=== PATIENT | female | born 1970 | race Hispanic/Latino ===

== ENCOUNTER 2024-08-29 13:12 | Inpatient (IN) | payer MEDICAID, OTHER ==
[~2024-08-29] VITALS: Ht 160 cm; Wt 124.0 kg
[2024-08-29 13:47] LABS: BASOPHILS # (AUTO) 0.04 K/uL (0.00-0.20); BASOPHILS % (AUTO) 0.4 % (0.0-5.0); HEMATOCRIT 48.2 % (36-48); IMMATURE GRANULOCYTE ABSOLUTE 0.04 K/uL (0-1); LYMPHOCYTES # (AUTO) 1.6 K/uL (1.0-4.8); LYMPHOCYTES % (AUTO) 17.6 % (21.0-51.0); MEAN CORPUSCULAR HEMOGLOBIN 31.4 pg (27.0-33.0); MEAN CORPUSCULAR HGB CONC 36.1 g/dL (32.0-36.0); MEAN CORPUSCULAR VOLUME 86.8 fL (79-99); MONOCYTES # (AUTO) 0.6 K/uL (0.1-1.0); NEUTROPHILS # (AUTO) 6.9 K/uL (1.8-7.7); NEUTROPHILS % (AUTO) 75.6 % (40.0-77.0); PLATELET COUNT (AUTO) 225 K/uL (130-400); RED BLOOD CELL COUNT(AUTO) 5.55 MIL/uL (4.00-5.50); WHITE BLOOD COUNT (AUTO) 9.1 K/uL (4.8-10.8)
--- NOTE | 2024-08-29 13:56 | EKG ---
[facility] Test Date: 2024-08-29 Test Time: 13:54:35 Pat Name: CONG WARREN Department: ED Room: Gender: F Extrusion Former: [id number] : 1970 Requested By: MIYA ALVAREZ Order Number: [id number] Reading MD: Veronica Ring Measurements Intervals Tina Rate: 101 P: 59 IL: 143 QRS: 15 QRSD: 100 T: 138 QT: 344 QTc: 447 Interpretive Statements Sinus tachycardia Inferior infarct, old Nonspecific T abnormalities, lateral leads No previous ECG available for comparison Electronically Signed On 08-29-2024 16:20:58 OPERATIONS MANAGER ASSISTANT by Veronica Ring Please click the below link to view image of tracing.
[2024-08-29 14:31] LABS: CREATININE 1.6 mg/dL (0.5-1.0); POTASSIUM 4.7 mmol/L (3.5-5.1)
[2024-08-29 14:33] LABS: B-TYPE NATRIURETIC PEPTIDE 7 pg/mL (0-100)
[2024-08-29] MEDS: 0.9%NACL 1000ML 1,000 ML IV ONE ×2 (15:04→16:53)
--- NOTE | 2024-08-29 16:11 | ERN ---
General Chief Complaint: Weakness Stated Complaint: GENERALIZED WEAKNESS Time Seen by MD: 13:16 History of Present Illness Initial Comments 54-year-old female presents for generally feeling weak for the last week or so. Patient took Ozempic for the 1st time last Saturday. Since then she has had epigastric pain a few episodes of vomiting, and decreased oral and p.o. intake. She reports that she feels very weak and fatigued. No chest pain shortness of breath or fevers. No sore throat. Of note, she reports that she stopped taking her insulin this week because she has not been eating and does not think she needs it. Allergies: Coded Allergies: Penicillins (Unverified Allergy, Unknown, RASH, 08/29/24) Home Meds Reported Medications Semaglutide (Ozempic) 2 Mg/0.75 Ml (8 Mg/3 Ml) Pen.injctr, 2 MG SQ QWEEK for 30 Days, #3 ML 0 Refills 08/29/24 Past Medical History Past Medical History: Diabetes-Type II, High Cholesterol, Hypertension Past Surgical History: Other Surgical History Other: LT OVARIAN SX ROS Dictation CONSTITUTIONAL: Generalized weakness HEAD/FACE: No signs of trauma. EENT: No eye pain, no blurred vision, no tearing, no double vision, no ear pain, no ear discharge, no nose pain, no nasal congestion, no throat pain, no throat swelling, no mouth pain. RESPIRATORY: No cough, no orthopnea, no SOB, no stridor, no wheezing. CARDIOVASCULAR: No chest pain, no edema, no palpitations, no syncope. GASTROINTESTINAL/ABDOMINAL: No abdominal pain, no constipation, no diarrhea, no nausea, no vomiting. GENITOURINARY: No abnormal discharge, no dysuria, no frequent urination, no hematuria. No complaints of pain in the genitals. MUSCULOSKELETAL: No back pain, no gout, no joint pain, no joint swelling, no muscle pain, no muscle stiffness, no neck pain. INTEGUMENTARY: No change in color, no change in hair/nails, no dryness, no lesion, no lumps, no rash. NEUROLOGICAL/PSYCH: No anxiety, not depressed, no emotional problem, no headache, no numbness, no pre-existing deficit, no history of seizures, no tr emors, no weakness. HEMATOLOGIC/LYMPHATIC: Not anemic, no history of blood clots, no apparent bleeding, no bruising, glands not swollen. All Systems Negative, Except as Noted. Physical Exam Physical Exam Dictation VITAL SIGNS: Reviewed. GENERAL APPEARANCE: Alert, oriented x3, no acute distress, obese. HEAD AND FACE: Non-traumatic. EYES: PERRL, pink conjunctivas, eyelid no trauma, anterior chamber clear. EARS: Pinnas intact and no signs of trauma or erythema. Ear canals clear and no discharge. TMs no erythema. NOSE: No discharge, no bleeding. OROPHARYNX: Mouth normal, teeth no caries, tongue pink. Pharynx clear, no erythema. Tonsils no exudates, no abscesses noted. Mucous membrane moist. NECK: Supple, non-tender, no thyromegaly, no masses, no JVD, no bruits. BREAST: Deferred. CHEST: No tenderness, no crepitus, no paradoxical movement, no retractions. LUNGS: Clear, well-ventilated, symmetric, no rales, no wheezing, no rhonchi, no stridor, good breath sounds bilaterally. HEART: Regular rate, regular rhythm, no murmur, no gallops. VASCULAR: No peripheral edema. ABDOMEN: Soft, positive bowel sounds, nondistended, no guarding, nontender, no rebound, no masses no hepatomegaly, no splenomegaly, no Bales's sign, no hernias. RECTAL: Deferred. GENITAL: Deferred. NEUROLOGICAL: Normal speech, gross motor function intact, gross sensory function intact. MUSCULOSKELETAL: Neck nontender, full range of motion, back nontender, full range of motion. EXTREMITIES: Nontender, full range of motion. SKIN: Color pink, dry, no turgor, no rash, no lacerations, no abrasions, no contusions. LYMPHATICS: Deferred. Results Laboratory and Microbiology Lab and Micro Result Laboratory Tests Test 08/29/24 13:41 08/29/24 14:09 08/29/24 16:00 08/29/24 16:38 White Blood Count 9.1 K/uL (4.8-10.8) Red Blood Count 5.55 MIL/uL (4.00-5.50) H Hemoglobin 17.4 g/dL (12.0-16.0) H Hematocrit 48.2 % (36-48) H Mean Corpuscular Volume 86.8 fL (79-99) Mean Corpuscular Hemoglobin 31.4 pg (27.0-33.0) Mean Corpuscular Hemoglobin Concent 36.1 g/dL (32.0-36.0) H Red Cell Distribution Width 12.0 % (11.0-15.5) Platelet Count 225 K/uL (130-400) Mean Platelet Volume 9.8 fL (7.5-10.5) Immature Granulocyte % (Auto) 0.4 % (0-1) Neutrophils (%) (Auto) 75.6 % (40.0-77.0) Lymphocytes (%) (Auto) 17.6 % (21.0-51.0) L Monocytes (%) (Auto) 6.0 % (3.0-13.0) Eosinophils (%) (Auto) 0.0 % (0.0-8.0) Basophils (%) (Auto) 0.4 % (0.0-5.0) Neutrophils # (Auto) 6.9 K/uL (1.8-7.7) Lymphocytes # (Auto) 1.6 K/uL (1.0-4.8) Monocytes # (Auto) 0.6 K/uL (0.1-1.0) Eosinophils # (Auto) 0.00 K/uL (0.00-0.70) Basophils # (Auto) 0.04 K/uL (0.00-0.20) Absolute Immature Granulocyte (auto 0.04 K/uL (0-1) Nucleated Red Blood Cells 0.0 % (0.0-0.19) Red Blood Cell Morphology See comments B-Type Natriuretic Peptide 7 pg/mL (0-100) Sodium Level 127 mmol/L (136-145) L Potassium Level 4.7 mmol/L (3.5-5.1) Chloride Level 93 mmol/L (101-111) L Carbon Dioxide Level 11 mmol/L (21-32) L Blood Urea Nitrogen 31 mg/dL (7-18) H Creatinine 1.6 mg/dL (0.5-1.0) H Glomerular Filtration Rate Calc 38 mL/min (>90) Random Glucose 446 mg/dL (70-105) *H Total Calcium 9.2 mg/dL (8.5-10.1) Total Creatine Kinase 27 U/L (21-232) Troponin I High Sensitivity 16.0 ng/L (4-50) Urine Color LIGHT-YELLOW (YELLOW) Urine Appearance CLEAR (CLEAR) Urine pH 5.5 (5.0-8.0) Urine Specific [place] 1.029 (1.001-1.031) Urine Protein 30 mg/dL (NEGATIVE) H Urine Glucose (UA) >=1000 mg/dL (NEGATIVE) H Urine Ketones 150 mg/dL (NEGATIVE) H Urine Occult Blood +- (TRACE) (NEGATIVE) H Urine Nitrate NEGATIVE (NEGATIVE) Urine Bilirubin NEGATIVE mg/dL (NEGATIVE) Urine Urobilinogen 0.2 mg/dL (0.2-1.0) Urine Leukocyte Esterase 75 Letty/uL (NEGATIVE) H Urine RBC 0-1 /HPF (0-1) Urine WBC 26-50 /HPF (0-1) H Urine Squamous Epithelial Cells RARE /HPF (0-2) Urine Bacteria RARE /HPF (None Seen) Urine Other Casts 3 /LPF (None Seen) Urine Yeast RARE /HPF (None Seen) Lactic Acid Level 2.7 mmol/L (0.8-2.5) H Test 08/29/24 16:39 08/29/24 16:44 08/29/24 17:25 08/29/24 17:57 Whole Blood Glucose 395 MG/DL (70-110) H 316 MG/DL (70-110) H Blood Gas Specimen Type Arterial Arterial Blood pH 7.222 (7.350-7.450) Arterial Blood Partial Pressure CO2 17 mmHg (32-45) *L Arterial Blood Partial Pressure O2 98.0 mmHg (83.0-108.0) Arterial Blood HCO3 6.7 mmol/L (21.0-28.0) L Arterial Blood Oxygen Saturation 96.4 % (94.0-98.0) Arterial Blood Base Excess -18.4 mmol/L (-2.0-3.0) L Blood Gas Temperature 37.0 CELSIUS (35.5-37.0) Blood Gas Vent Mode RA (ROOM AIR) FiO2 21.0 % Blood Gas Specimen Comment DR.WORTH JEWEL Sodium Level 130 mmol/L (136-145) L Potassium Level 4.5 mmol/L (3.5-5.1) Chloride Level 96 mmol/L (101-111) L Carbon Dioxide Level 13 mmol/L (21-32) L Blood Urea Nitrogen 28 mg/dL (7-18) H Creatinine 1.4 mg/dL (0.5-1.0) H Glomerular Filtration Rate Calc 44 mL/min (>90) Random Glucose 364 mg/dL (70-105) H Whole Blood Ketones Quantitative 6.3 mmol/L (0.0-0.6) H Total Calcium 9.1 mg/dL (8.5-10.1) MDM CC: Generalized weakness status post injecting Ozempic for the 1st time Historian: Patient Comorbidities: Obesity, diabetes, hypertension, dyslipidemia Limitations by social determinants of health: None Differential diagnosis: Medication side effect, dehydration, hyper or hypoglycemia, metabolic derangement, infection, other. EKG: NSR, rate of 101, tachycardic, normal axis, good R-wave progression, intervals are stable with no STEMI. Independently interpreted by me. Vital signs: Initially bit tachycardic heart rate of 106, this improved in the ER. Hypertensive 166/97, baseline for patient. Labs (independently interpreted by me): No leukocytosis, she does have hemoconcentration hemoglobin 17.4 hematocrit 48. No shift or bands. ABG shows a pH 7.22 base excess -18 consistent with metabolic acidosis patient was started on DKA protocol including fluids insulin drip and electrolytes. Case discussed with hospitalist for admission. ED Course Orders Procedure Category Date Status Time Cardiac Panel LAB 08/29/24 Complete 13:36 Cbc With Differential LAB 08/29/24 Complete 13:36 Basic Metabolic Panel LAB 08/29/24 Complete 13:36 B-Type Natriuretic LAB 08/29/24 Complete Peptide 13:36 Urinalysis Profile LAB 08/29/24 Complete 13:36 0.9%Nacl 1000ml (Ns PHA 08/29/24 Complete 1000ml) 14:00 12 Lead Ekg Tracing- EKG 08/29/24 Resulted Technical 13:36 Arterial Blood Gas RT 08/29/24 Transmitted 16:24 Ketone Blood LAB 08/29/24 Complete Quantitative 16:24 0.9%Nacl 1000ml (Ns PHA 08/29/24 Complete 1000ml) 16:30 Dka Prtcl:Restrict To CPOE 08/29/24 Transmitted Icu/Ccu 16:24 Dka Protcl:Dc All CPOE 08/29/24 Transmitted Meds/Feeding 16:24 Dka Protocol: Bmp Q4h CPOE 08/29/24 Transmitted Until 16:24 Basic Metabolic Panel LAB 08/29/24 Complete 16:24 Basic Metabolic Panel LAB 08/29/24 Logged 20:24 Basic Metabolic Panel LAB 08/30/24 Verified 00:24 Basic Metabolic Panel LAB 08/30/24 Verified 04:24 Basic Metabolic Panel LAB 08/30/24 Verified 08:24 Basic Metabolic Panel LAB 08/30/24 Verified 12:24 Basic Metabolic Panel LAB 08/30/24 Verified 16:24 Basic Metabolic Panel LAB 08/30/24 Verified 20:24 0.9%Nacl 1000ml (Ns PHA 08/29/24 In Process 1000ml) 16:30 D5w-1/2 Ns/20meq Kcl PHA 08/29/24 In Process (D5w-1/2 Ns/20meq K 16:30 Potassium Chloride PHA 08/29/24 In Process 20meq/10ml (Kcl 20meq 16:30 Magnesium 2gm Premix PHA 08/29/24 In Process 50ml (Magnesium 2gm 16:30 Insulin Regular, PHA 08/29/24 In Process Human 3ml (Humulin R 16:30 Dka Protocol: Bs, Vs, CPOE 08/29/24 Transmitted Neuro 16:24 Dextrose 5 %-0.45 % PHA 08/29/24 In Process Nacl (D5 1/2ns) 16:30 Lactic Acid LAB 08/29/24 Complete 16:27 Culture Urine NOAM 08/29/24 In Process 16:38 Arterial Blood Gas LAB 08/29/24 Complete 16:44 Ketorolac PHA 08/29/24 Complete Tromethamine 30mg/Ml 18:00 Vital Signs(Adult CPOE 08/29/24 Transmitted Hospitalist) 18:07 Nurse To Enter Home CPOE 08/29/24 Transmitted Medication 18:07 Admit Orders ADM 08/29/24 Transmitted 18:07 Current Medications Medications (Trade) Dose Ordered Sig/Alejandro Route PRN Reason Start Time Stop Time Status Last Admin Dose Admin Dextrose/Sodium Chloride 1,000 ml @ 0 mls/hr AD IV 08/29/24 16:30 09/28/24 16:29 Insulin Human Regular 100 unit/ Sodium Chloride 101 ml @ 0 mls/hr PROTOCOL IV 08/29/24 16:30 09/28/24 16:29 08/29/24 16:52 Ketorolac Tromethamine (toRADol) 30 mg ONCE ONCE IM 08/29/24 18:00 08/29/24 18:01 DC 08/29/24 17:50 Magnesium Sulfate 50 ml @ 0 mls/hr PROTOCOL IV 08/29/24 16:30 09/28/24 16:29 Potassium Chloride 20 meq/ Sodium Chloride 1,010 ml @ 0 mls/hr PROTOCOL IV 08/29/24 16:30 09/28/24 16:29 08/29/24 16:51 Potassium Chloride/Dextrose/ Sod Cl 1,000 ml @ 0 mls/hr AD IV 08/29/24 16:30 09/28/24 16:29 Sodium Chloride 1,000 ml @ 0 mls/hr ONCE ONCE IV 08/29/24 14:00 08/29/24 14:01 DC 08/29/24 15:04 Sodium Chloride 1,000 ml @ 0 mls/hr ONCE ONCE IV 08/29/24 16:30 08/29/24 16:35 DC 08/29/24 16:53 Sodium Chloride 1,000 ml @ 200 mls/hr PROTOCOL IV 08/29/24 16:30 09/28/24 16:29 Vital Signs Date Time Temp Pulse Resp B/P (MAP) Pulse Ox O2 Delivery O2 Flow Rate FiO2 08/29/24 16:59 97.0 94 24 160/84 97 Room Air* 0 21 08/29/24 13:41 97.9 106 20 166/97 96 Room Air* 0 21 08/29/24 13:14 98.2 108 18 175/104 99 Room Air 0 DX & DISP Disposition: Inpatient Departure Impression: Primary Impression: DKA (diabetic ketoacidosis) Additional Impressions: Dehydration, SAMMY (acute kidney injury) Critical Time: 30 minutes (Critical Care Procedure NoteAuthorized and Performed by: meTotal critical care time: Approximately 36 minutesDue to a high probability of clinically significant, life threatening deterioration, the patient required my highest level of preparedness to intervene emergently and I personally spent this critical care time directly and personally managing the patient. This critical care time included obtaining a history; examining the patient; pulse oximetry; ordering and review of studies; arranging urgent treatment with development of a management plan; evaluation of patient's response to treatment; frequent reassessment; and, discussions with other providers.This critical care time was performed to assess and manage the high probability of imminent, life-threatening deterioration that could result in multi-organ failure. It was exclusive of separately billable procedures and treating other patients and teaching time.Please see MDM section and the rest of the note for further information on patient assessment and treatment.) Condition: Stable Referrals: SELF,REFERRAL (PCP) MIYA ALVAREZ DO Aug 29, 2024 16:11
[2024-08-29] MEDS ORDERED: DEXTROSE 5 %-0.45 % NACL 1,000 ML IV SCH (16:30)
[2024-08-29 16:37] LABS: ADD UA MICROSCOPIC YES; APPEARANCE,URINE CLEAR (CLEAR); BILIRUBIN,URINE NEGATIVE (NEGATIVE); COLOR,URINE LIGHT-YELLOW (YELLOW); GLUCOSE, URINE (UA) >=1000 mg/dL (NEGATIVE); KETONES,URINE 150 mg/dL (NEGATIVE); LEUKOCYTE ESTERASE ,URINE 75 Leu/uL (NEGATIVE); NITRATE,URINE NEGATIVE (NEGATIVE); PH,URINE 5.5 (5.0-8.0); PROTEIN,URINE 30 mg/dL (NEGATIVE); UROBILINOGEN,URINE 0.2 mg/dL (0.2-1.0)
[2024-08-29 16:39] LABS: BACTERIA,URINE RARE /HPF (None Seen); MUCUS,URINE RARE LPF (None Seen); OTHER CASTS, URINE 3 /LPF (None Seen); RBC,URINE 0-1 /HPF (0-1); SQUAMOUS EPITHELIAL CELL,UR RARE /HPF (0-2); WBC,URINE 26-50 /HPF (0-1); YEAST,URINE BUDDING RARE /HPF (None Seen)
[2024-08-29 16:46] LABS: ABG BASE EXCESS -18.4 mmol/L (-2.0-3.0); ABG HCO3 6.7 mmol/L (21.0-28.0); ABG OXYGEN SATURATION 96.4 % (94.0-98.0); ABG PCO2 17 mmHg (32-45); ABG PH 7.222 (7.350-7.450); VENT MODE, BG RA (ROOM AIR)
[2024-08-29] MEDS: PoTASSium chloRIDE 20MEQ/10ML 20 MEQ in 0.9%NACL 1000ML 1,000 ML IV SCH (16:51)
[2024-08-29] MEDS: INSULIN REGULAR, HUMAN 3ML 100 UNIT in 0.9%NACL 100ML 100 ML IV SCH (16:52)
--- NOTE | 2024-08-29 16:57 | NUR ---
DKA PROTOCOL STARTED AT THIS TIME. PATIENT IS ALERT AND IN BED RESTING. PATIENT DOES VOICE FEELING WEAK. PATIENT EDUCATED ON NEED TO USE CALL LIGHT FOR ASSITANCE. PATIENT'S AT BEDSIDE AND INFORMED OF PATIENT'S ADMISSION.
[2024-08-29] MEDS ORDERED: SEMA2PEN SQ (17:41)
--- NOTE | 2024-08-29 17:42 | NUR ---
MED REC DONE AT THIS TIME.
[2024-08-29] MEDS: ketOROlac 30MG VIAL (30MG/ML) IM ONE (17:50)
[2024-08-29 18:03] LABS: CREATININE 1.4 mg/dL (0.5-1.0); POTASSIUM 4.5 mmol/L (3.5-5.1)
[2024-08-29] MEDS: morPHINE 4 MG SYG IVP ONE (18:45)
[2024-08-29] MEDS: ondanSETRON 4MG INJ IVP ONE (18:45)
[2024-08-29] MEDS ORDERED: ondanSETRON 4MG INJ IV PRN (19:00)
[2024-08-29] MEDS ORDERED: acetaMINOPHEN 650 MG SUPPOSITORY RC PRN (19:00)
--- NOTE | 2024-08-29 19:01 | HP ---
History of Present Illness Reason for Visit: weakness History of Present Illness Ms. Bullard is a 54-year-old female that was seen and examined today on 08/29/2024. Patient is a good historian and personal health. Patient states that she came to the emergency department with a chief complaint of weakness. Onset was six days ago. Location is to bilateral lower extremities. Character is described as" like I have no energy."Duration is constant. There was no alleviating factors. There was no aggravating factors. Patient reports that she stopped using her insulin one week ago because she was started on Ozempic. Patient states that her appetite had decreased and since she was not eating she had intake any of her insulin. Today Creatinine 1.6 , glucose 446, sodium 137, chloride 93, carbon dioxide 11, BUN 31 serum ketones 6. 3, lactic acid 2.7, ABG showed pH 7.222, pCO2 17. Emergency room physician recommended that patient be admitted with a diagnosis of DKA. Past Medical History ADDITIONAL PAST MEDICAL HISTORY: [Diabetes mellitius type2, diagnosed at age 38, previously only gestational diabetes] SOCIAL HISTORY: [Negative for smoking, use, drug use. Patient lives with the Dari bullard. 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 Patient has good access health care through her insurance. Patient denies difficulty paying her bills. Patient is typically independent of all her ADLs.] SURGICAL HISTORY: [Left oophorectomy] Review of Systems General: No Fever, No Chills, No Night Sweats, No Fatigue, No Malaise, No Appetite, No Other HEENT: No Head Aches, No Visual Changes, No Eye Pain, No Ear Pain, No Dysphasia, No Sinus Congestion, No Post Nasal Drip, No Sore Throat, No Other Pulmonary: No Dyspnea, No Cough, No Pleuritic Chest Pain, No Other Cardiovascular: No: Chest Pain, Palpitations, Orthopnea, Paroxysmal Noc. Dyspnea, Edema, Lt Headedness, Other Gastrointestinal: No: Nausea, Vomiting, Abdominal Pain, Diarrhea, Constipation, Melena, Hematochezia, Other Genitourinary: No Dysuria, No Frequency, No Incontinence, No Hematuria, No Retention, No Other Musculoskeletal: No: other, neck pain, shoulder pain, arm pain, back pain, hand pain, leg pain, foot pain Skin: No Urticaria, No Rash, No Other Neurological: Weakness; No: Numbness, Incoordination, Change in speech, Confusion, Seizures, Other Allergies: Coded Allergies: Penicillins (Unverified Allergy, Unknown, RASH, 08/29/24) Scheduled Semaglutide (Ozempic), 2 MG SQ QWEEK, (Reported) Exam Vital Signs Vital Signs Date Time Temp Pulse Resp B/P (MAP) Pulse Ox O2 Delivery O2 Flow Rate FiO2 08/29/24 18:30 98.1 98 22 166/80 100 Room Air* 0 21 General Appearance: Alert, Oriented X3, Cooperative, No acute distress HEENT: Atraumatic, PERRLA, EOMI, Mucous membr. moist/pink Respiratory: Clear to auscultation, Normal air movement Cardiovascular: Normal S1, Normal S2 Abdominal: Normal bowel sounds, Soft, No tenderness Extremities: No cyanosis, No edema Skin: No significant lesion Neuro: Normal speech, Strength at 5/5 X4 ext, Cranial nerves 3-12 NL Psych/Mental Status: Mental status NL, Mood NL, Thoughts/Content NL Assessment/Plan ASSESSMENT: [ Diabetic ketoacidosis, POA uti, POA] PLAN: [ Admit patient to intensive care unit as inpatient status Place patient on telemetry monitoring Consult critical Care team for evaluation and treatment. Electrolytes, magnesium, phosphorus every 4 hours Bedside glucose every hour If potassium level above 5.3 check potassium every 2 hours Insulin drip per DKA protocol IV fluids per DKA protocol Potassium replacement per DKA protocol Magnesium replacement per hospital protocol Phosphorus replenishment per hospital DKA protocol Bicarbonate replenishment by hospital DKA protocol Keep patient n.p.o. Consider resuming diet once patient's anion gap is 14 or less Empiric antibiotic therapy with aztreonam 1 g IV every 8 hours GI prophylaxis, Protonix 40 mg IV once daily. DVT prophylaxis, heparin 5000 units subcutaneously twice daily. Critical Care Time: I spent ____ 51 ___ minutes of critical care time with the patient. I reviewed lab work, change the patient's medication, and coordinated protocol in the event of tachycardia or desaturation. The patient status remains unchanged. ADVANCED CARE PLANNING 1. Which of the following were discussed? Hospice Care - Yes Therapeutic options - Yes Advance Directives - Yes- patient states she does not have any advance directives in place at this time, however her can make decisions for her if she becomes unable. Other discussions - patient wishes to remain a full code at this time 2. Discussed with who? Patient 3. Voluntary nature of this service was explained to the patient? Yes 4. Amount of time spent - __ 16 minutes 5. Reviewed by Physician? (if this service was performed by NPP) Yes This document was generated in part using voice recognition software, occasional wrong word or sound alike substitutions may have occurred due to the inherent limitations of voice recognition software. Read the chart carefully and recog nize using context, where the substitutions have occurred. Although every effort was made to edit the content, pelts skinner and typing errors may occur ATTESTATION BY PHYSICIAN I have seen and examined the patient. I reviewed the documentation, medical decision making, and treatment plan as noted by the mid-level provider above. I agree with the findings and plan of care. ELLA LIU [facility] Aug 29, 2024 19:01
[2024-08-29] MEDS: AZTREONAM 1 GM VIAL IVPB SCH (19:39)
[2024-08-29] MEDS: D5W-1/2 NS/20MEQ KCL 1,000 ML IV SCH (19:45)
[2024-08-29] MEDS: HEParin 5,000 UNIT VIAL SQ SCH (21:11)
[2024-08-29 21:16] LABS: CREATININE 1.2 mg/dL (0.5-1.0); POTASSIUM 3.8 mmol/L (3.5-5.1)
[2024-08-29] MEDS: PoTASSium chloRIDE 10MEQ/100ML 100 ML IV ONE (22:30)
[2024-08-29] MEDS: CEFTRIAXONE 2GM VIAL IVPB SCH (22:58)
[2024-08-29] MEDS ORDERED: DiphenhydrAMINE HCL 50 MG/ML VIAL IM PRN (23:00)
--- NOTE | 2024-08-29 23:05 | CONS ---
[facility] CONSULTATION NOTE Date Patient Seen: Aug 29, 2024 Time of Visit: 22:51 Supervising Physician: [DR Thuan DYE ] Reason for Consultation: [ ICU MANAGEMENT] Primary Care Physician: [ ] Outpatient Specialists: [ ] Inpatient Consults: [ ] PROBLEM LIST: 1. DKA 2. SEVERE METABOLIC ACIDOSIS IN THE CONTEXT OF DKA 3. MORBID OBESITY 4. ESSENTIAL HYPERTENSION 5. CHRONIC KIDNEY DISEASE STAGE DUE 6. ACUTE COMPLICATED CYSTITIS 7. ADVERSE REACTION TO OZEMPIC CHIEF COMPLAINT: Nausea vomiting, loss of appetite HPI: Patient is a 54-year-old female with past medical history significant for hypertension, hyperlipidemia, diabetes type 2, an a surgical history of left oophorectomy, presents to the emergency department complaining of nausea and vomiting, loss of appetite the started eight days ago. Patient reports that she took OZEMPIC on August 21, 2024, and since then, she has been having nausea and vomiting with loss of appetite. Today, due to the worsening of the symptoms, patient decided to come to emergency department for further evaluation and treatment. The workup in the emergency department shows on the ABG pH 7.22, pCO2 of 17, bicarb was 6.7, sodium of 128, CO2 of 13, BUN 23, creatinine of 1.2, glucose of 230 UA shows ketones 150, and UTI. In the emergency department, patient was started on DKA protocol. Critical team has been consulted for critical care management. Patient denies fever, chills, diarrhea, constipation, shortness for breath, dizziness, or any other symptoms. PAST MEDICAL HX: see above PAST SURGICAL HX: noncontributory SOCIAL HISTORY: No tobacco, ETOH, or illicit drug use Coded Allergies: Penicillins (Unverified Allergy, Unknown, RASH, 08/29/24) REVIEW OF SYSTEMS: 12 point ROS reviewed with patient. Pertinent positives mentioned above. Otherwise negative. PHYSICAL EXAM: GENERAL: alert, weak, awake oriented x 3 HEENT: EOMI, Sclera non icteric, moist mucosa NECK: Supple, no JVD, trachea midline LUNGS: Clear breath sounds bilaterally. No wheezes HEART: Regular rate and rhythm. Normal S1 and S2, without murmurs ABD: Abdomen soft, nontender. Bowel sounds present EXT: No clubbing cyanosis or edema NEURO: Alert and oriented to person, follows commands Vital Signs (last 8hr) Date Time Temp Pulse Resp B/P (MAP) Pulse Ox O2 Delivery O2 Flow Rate FiO2 08/29/24 22:03 98.2 100 16 150/75 98 Room Air* 0 21 08/29/24 21:06 98.2 102 16 142/78 98 Room Air* 0 21 08/29/24 20:03 98.2 95 16 132/68 98 Room Air* 0 21 08/29/24 18:30 98.1 98 22 166/80 100 Room Air* 0 21 08/29/24 16:59 97.0 94 24 160/84 97 Room Air* 0 21 LABS: Hematology Labs: Test 08/29/24 13:41 Range/Units White Blood Count 9.1 4.8-10.8 K/uL Red Blood Count 5.55 H 4.00-5.50 MIL/uL Hemoglobin 17.4 H 12.0-16.0 g/dL Hematocrit 48.2 H 36-48 % Mean Corpuscular Volume 86.8 79-99 fL Mean Corpuscular Hemoglobin 31.4 27.0-33.0 pg Mean Corpuscular Hemoglobin Concent 36.1 H 32.0-36.0 g/dL Red Cell Distribution Width 12.0 11.0-15.5 % Platelet Count 225 130-400 K/uL Mean Platelet Volume 9.8 7.5-10.5 fL Immature Granulocyte % (Auto) 0.4 0-1 % Neutrophils (%) (Auto) 75.6 40.0-77.0 % Lymphocytes (%) (Auto) 17.6 L 21.0-51.0 % Monocytes (%) (Auto) 6.0 3.0-13.0 % Eosinophils (%) (Auto) 0.0 0.0-8.0 % Basophils (%) (Auto) 0.4 0.0-5.0 % Neutrophils # (Auto) 6.9 1.8-7.7 K/uL Lymphocytes # (Auto) 1.6 1.0-4.8 K/uL Monocytes # (Auto) 0.6 0.1-1.0 K/uL Eosinophils # (Auto) 0.00 0.00-0.70 K/uL Basophils # (Auto) 0.04 0.00-0.20 K/uL Absolute Immature Granulocyte (auto 0.04 0-1 K/uL Nucleated Red Blood Cells 0.0 0.0-0.19 % Red Blood Cell Morphology See comments Chemistry Labs: Test 08/29/24 22:01 08/29/24 20:59 08/29/24 20:42 08/29/24 17:25 Range/Units Whole Blood Glucose 239 H 70-110 MG/DL Sodium Level 128 L 136-145 mmol/L Potassium Level 3.8 3.5-5.1 mmol/L Chloride Level 101 101-111 mmol/L Carbon Dioxide Level 13 L 21-32 mmol/L Blood Urea Nitrogen 23 H 7-18 mg/dL Creatinine 1.2 H 0.5-1.0 mg/dL Glomerular Filtration Rate Calc 53 >90 mL/min Random Glucose 255 H 70-105 mg/dL Total Calcium 8.5 8.5-10.1 mg/dL Lactic Acid Level 2.0 0.8-2.5 mmol/L Whole Blood Ketones Quantitative 6.3 H 0.0-0.6 mmol/L Test 08/29/24 14:09 08/29/24 13:41 Range/Units Total Creatine Kinase 27 21-232 U/L Troponin I High Sensitivity 16.0 4-50 ng/L B-Type Natriuretic Peptide 7 0-100 pg/mL DIAGNOSTICS / RADIOLOGY RESULTS: [ ] PLAN NEURO: Minimize central acting medications as possible. Fall Precautions. Well lighted room through the day and minimize interruptions through the night to prevent acute delirium. PULMONARY: Supplemental 02 as needed Titrate Fio2 to keep Spo2 > or = 90% DuoNebs and CPT as needed IS hourly while awake for pulmonary hygiene Out of bed to chair as tolerated VAP Bundle Vent/BIPAP Settings: [ ] Driving pressure: [ ] P Plat: [ ] Static C: [ ] Static R: [ ] P/F Ratio: [ ] CARDIOVASCULAR: Follow hemodynamics. Titrate vasopressor to keep MAP >65 or systolic blood pressure >95mmHg DIPS: Insulin drip LINES: [ ] GI & NUTRITION: Keep patient NPO Continue nutritional support Aspirations precautions Prokinetic agents and laxatives as needed KIDNEYS & ELECTROLYTES: Strict monitoring of intake and output Daily weights Continue current IV fluid Avoid nephrotoxic agents Monitor electrolytes and replace as needed Goal urine output of 30mL/hr or 0.5mL/kg/hr Urine output: [ ] Fluid Balance: [ ] ENDOCRINE: Maintain blood glucose between 100-180 at all times. Insulin sliding scale for blood glucose management Continue insulin drip until the gap is closed Transition to insulin subcutaneously INFECTIOUS DISEASE: Trend temperature. Moore-culture if febrile. Ceftriaxone 2 g IV daily Micro: Urine culture Antibiotics: [Ceftriaxone 2 g IV daily ] HEMATOLOGY & COAGULATION: Monitor H&H. Keep Hgb > 7 Transfuse 1 unit of PRBC for Hgb < 7 Transfuse 1 pack of platelets of platelets < 20, 000 Watch for any signs and symptoms of bleeding SKIN: Pressure ulcer prevention per facility protocol Rehab: PT/OT Prophylaxis: GI: [SCDs ] DVT: [Heparin ] Code Status: Full Resuscitation Disposition: [Keep in ICU ] Other: Total patient care time exceeds 60 minutes excluding all procedures. Case was discussed and seen with my supervising physician Dr Raymundo Dye. The above plan was formulated and agreed upon. ASYA SLAUGHTER Aug 29, 2024 23:05
--- NOTE | 2024-08-29 23:06 | NUR ---
TRANSFERED CARE TO SF RN AT THIS TIME
[2024-08-29] MEDS: INSULIN humuLIN R 100 UNIT/ML 3ML SQ SCH (23:45)
[2024-08-30] VITALS (24 sets, daily range): BP systolic 111–164; BP diastolic 56–85; PULSE 85–98; RESP 12–29; TEMP 97.8–98.5; O2SAT 95–99
--- NOTE | 2024-08-30 01:20 | NUR ---
ENDORSED CARE TO [facility] QUINTANILLA AT THIS TIME
[2024-08-30] MEDS: morPHINE 4 MG SYG IV PRN (01:25)
[2024-08-30 01:36] LABS: CREATININE 1.2 mg/dL (0.5-1.0); POTASSIUM 3.6 mmol/L (3.5-5.1)
[2024-08-30] MEDS: PoTASSium chloRIDE 20MEQ/100ML 100 ML IV PRN (01:56)
[2024-08-30 02:07] LABS: ABG BASE EXCESS -15.8 mmol/L (-2.0-3.0); ABG HCO3 8.3 mmol/L (21.0-28.0); ABG PCO2 18 mmHg (32-45); ABG PH 7.279 (7.350-7.450); PO2, ARTERIAL BG 81.6 mmHg (83.0-108.0); VENT MODE, BG RA (ROOM AIR)
[2024-08-30] MEDS: NS-20 MEQ KCL 1000ML 1,000 ML IV ONE (02:46)
[2024-08-30] MEDS: NS-20 MEQ KCL 1000ML 1,000 ML IV PRN (04:31)
[2024-08-30 06:18] LABS: CREATININE 1.1 mg/dL (0.5-1.0); POTASSIUM 3.5 mmol/L (3.5-5.1)
--- NOTE | 2024-08-30 08:35 | PN ---
[facility] PROGRESS NOTE Date Patient Seen: Aug 30, 2024 Time of Visit: 08:31 Supervising Physician: Reginald Rivera Primary Care Physician: Hospitalist Outpatient Specialists: MATT Inpatient Consults: Dr. Fonseca PROBLEM LIST: Diabetic ketoacidosis Acute complicated cystitis Hypertension Acute renal failure secondary to ATN from dehydration Morbid obesity BMI of 38 Adverse reaction to Ozempic History of diabetes mellitus INTERVAL HISTORY: 08/30 patient is awake alert oriented x3 no acute distress. She remains on insulin drip for DKA protocol lab this morning with sodium 132 potassium 3.5 bicarb is still low at 14 BUN is 15 creatinine is 1.1. Glucose 255. We will give bolus of IV fluids. Continue BMP q4h. transition when bicarb is over 18 and gap <14 x2. REVIEW OF SYSTEMS: 12 point ROS reviewed with patient. Pertinent positives mentioned above. Otherwise negative. PHYSICAL EXAM: GENERAL: alert, weak, awake oriented x 3 HEENT: EOMI, Sclera non icteric, moist mucosa NECK: Supple, no JVD, trachea midline LUNGS: Clear breath sounds bilaterally. No wheezes HEART: Regular rate and rhythm. Normal S1 and S2, without murmurs ABD: Abdomen soft, nontender. Bowel sounds present EXT: No clubbing cyanosis or edema NEURO: Alert and oriented to person, follows commands Vital Signs (last 8hr) Date Time Temp Pulse Resp B/P (MAP) Pulse Ox O2 Delivery O2 Flow Rate FiO2 08/30/24 07:00 91 16 164/81 99 Room Air 08/30/24 06:45 87 15 137/74 98 Room Air 08/30/24 06:30 91 14 136/73 97 Room Air 08/30/24 06:15 91 15 128/57 98 Room Air 08/30/24 06:00 89 14 136/64 99 Room Air 08/30/24 05:45 85 15 146/74 98 Room Air 08/30/24 05:30 98.4 90 21 134/68 97 Room Air 08/30/24 03:42 98.1 87 18 142/68 98 Room Air* 0 08/30/24 02:30 98.1 92 19 139/70 98 Room Air* 0 08/30/24 01:30 98.2 99 20 172/86 98 Room Air* 0 21 LABS: Hematology Labs: Test 08/29/24 13:41 Range/Units White Blood Count 9.1 4.8-10.8 K/uL Red Blood Count 5.55 H 4.00-5.50 MIL/uL Hemoglobin 17.4 H 12.0-16.0 g/dL Hematocrit 48.2 H 36-48 % Mean Corpuscular Volume 86.8 79-99 fL Mean Corpuscular Hemoglobin 31.4 27.0-33.0 pg Mean Corpuscular Hemoglobin Concent 36.1 H 32.0-36.0 g/dL Red Cell Distribution Width 12.0 11.0-15.5 % Platelet Count 225 130-400 K/uL Mean Platelet Volume 9.8 7.5-10.5 fL Immature Granulocyte % (Auto) 0.4 0-1 % Neutrophils (%) (Auto) 75.6 40.0-77.0 % Lymphocytes (%) (Auto) 17.6 L 21.0-51.0 % Monocytes (%) (Auto) 6.0 3.0-13.0 % Eosinophils (%) (Auto) 0.0 0.0-8.0 % Basophils (%) (Auto) 0.4 0.0-5.0 % Neutrophils # (Auto) 6.9 1.8-7.7 K/uL Lymphocytes # (Auto) 1.6 1.0-4.8 K/uL Monocytes # (Auto) 0.6 0.1-1.0 K/uL Eosinophils # (Auto) 0.00 0.00-0.70 K/uL Basophils # (Auto) 0.04 0.00-0.20 K/uL Absolute Immature Granulocyte (auto 0.04 0-1 K/uL Nucleated Red Blood Cells 0.0 0.0-0.19 % Red Blood Cell Morphology See comments Chemistry Labs: Test 08/30/24 07:28 08/30/24 05:45 08/29/24 20:42 08/29/24 17:25 Range/Units Whole Blood Glucose 221 H 70-110 MG/DL Sodium Level 132 L 136-145 mmol/L Potassium Level 3.5 3.5-5.1 mmol/L Chloride Level 104 101-111 mmol/L Carbon Dioxide Level 14 L 21-32 mmol/L Blood Urea Nitrogen 15 7-18 mg/dL Creatinine 1.1 H 0.5-1.0 mg/dL Glomerular Filtration Rate Calc 59 >90 mL/min Random Glucose 255 H 70-105 mg/dL Total Calcium 8.3 L 8.5-10.1 mg/dL Lactic Acid Level 2.0 0.8-2.5 mmol/L Whole Blood Ketones Quantitative 6.3 H 0.0-0.6 mmol/L Test 08/29/24 14:09 08/29/24 13:41 Range/Units Total Creatine Kinase 27 21-232 U/L Troponin I High Sensitivity 16.0 4-50 ng/L B-Type Natriuretic Peptide 7 0-100 pg/mL DIAGNOSTICS / RADIOLOGY RESULTS: [ ] PLAN NEURO: Minimize central acting medications as possible. Fall Precautions. Well lighted room through the day and minimize interruptions through the night t o prevent acute delirium. PULMONARY: Supplemental 02 as needed Titrate Fio2 to keep Spo2 > or = 90% DuoNebs and CPT as needed IS hourly while awake for pulmonary hygiene Out of bed to chair as tolerated CARDIOVASCULAR: Follow hemodynamics. Titrate vasopressor to keep MAP >65 or systolic blood pressure >95mmHg DIPS: Insulin drip LINES: PIV GI & NUTRITION: Keep patient NPO Continue nutritional support Aspirations precautions Prokinetic agents and laxatives as needed KIDNEYS & ELECTROLYTES: Strict monitoring of intake and output Daily weights Continue current IV fluid Avoid nephrotoxic agents Monitor electrolytes and replace as needed Goal urine output of 30mL/hr or 0.5mL/kg/hr ENDOCRINE: Maintain blood glucose between 100-180 at all times. Insulin sliding scale for blood glucose management Continue insulin drip until the gap is closed Transition to insulin subcutaneously INFECTIOUS DISEASE: Trend temperature. Moore-culture if febrile. Ceftriaxone 2 g IV daily Micro: Urine culture Antibiotics: [Ceftriaxone 2 g IV daily ] HEMATOLOGY & COAGULATION: Monitor H&H. Keep Hgb > 7 Transfuse 1 unit of PRBC for Hgb < 7 Transfuse 1 pack of platelets of platelets < 20, 000 Watch for any signs and symptoms of bleeding SKIN: Pressure ulcer prevention per facility protocol Rehab: PT/OT Prophylaxis: GI: [SCDs ] DVT: [Heparin ] Code Status: Full Resuscitation Disposition: [Keep in ICU ] Other: Total patient care time exceeds 35 minutes excluding all procedures. Case was discussed and seen with my supervising physician Dr Raymundo Montelongo. The above plan was formulated and agreed upon. FORTINO [facility] Aug 30, 2024 08:35
[2024-08-30 09:09] LABS: CREATININE 0.8 mg/dL (0.5-1.0); POTASSIUM 5.2 mmol/L (3.5-5.1)
--- NOTE | 2024-08-30 10:02 | NUR ---
DCP Pt awake, alert, oriented citizen of [place] speaking lives with spouse Dari Bullard [phone] in an apt. 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 Anticipates discharge plan is for home. Addendum: 08/30/24 at 1007 by JEREMIAH CARRILLO RN Amended: Links added.
[2024-08-30] MEDS: LACTATED RINGERS 1000ML IV ONE (10:05)
[2024-08-30] MEDS: PANTOPrazole 40 MG/VIAL IVP SCH (10:06)
[2024-08-30] MEDS: INSULIN GLARgine 100 UNITS/ML 10 ML VIAL SQ SCH (10:09)
[2024-08-30 10:24] LABS: CREATININE 1.1 mg/dL (0.5-1.0)
--- NOTE | 2024-08-30 10:40 | PN ---
[facility] PROGRESS NOTE Date of Service: Aug 30, 2024 Time of Service: 10:34 SUBJECTIVE: 08/30 patient seen at bedside, no acute events overnight. She still has an anion gap, we will continue with DKA protocol. She reports her nausea and vomiting have resolved. Her vitals and labs are relatively unremarkable. Patient reports she stopped taking her insulin once she started Ozempic and she was not checking her blood sugars. There is a question if her increased nausea and vomiting was secondary to Ozempic or if it was a result of her DKA. This is unable to be determined as she was not checking her blood sugars while she was at home. 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 REVIEW OF SYSTEMS 12 point review of systems negative unless noted in HPI PHYSICAL EXAM GENERAL APPEARANCE: The patient is awake, alert, and oriented, in no acute cardiopulmonary distress. NEUROLOGICAL: Cranial nerves II-XII grossly intact. Motor is 5/5 in bilateral upper and lower extremities proximal to distal. No sensory deficits. HEENT: Face is symmetric. Pupils are equal and reactive. Extraocular movements are intact. NECK: Supple. No JVD. No thyromegaly. No submental, submandibular, pre- /postauricular, occipital or supraclavicular lymphadenopathy. CHEST: Normal chest expansion. No Telemetry. LUNGS: Absence of any rales, rhonchi or any wheezing. CARDIOVASCULAR: Regular. S1 and S2 normal. No appreciable rubs, murmurs or gallops. ABDOMEN: Soft, nontender, and nondistended. There is no rebound, voluntary guarding, or rigidity. : Deferred. No Huertas. EXTREMITIES: Non-edematous and not cyanotic. No clubbing. Good capillary re fill. SKIN: No skin breakdown. Vital Signs (last 8hr) Date Time Temp Pulse Resp B/P (MAP) Pulse Ox O2 Delivery O2 Flow Rate FiO2 08/30/24 07:00 91 16 164/81 99 Room Air 08/30/24 06:45 87 15 137/74 98 Room Air 08/30/24 06:30 91 14 136/73 97 Room Air 08/30/24 06:15 91 15 128/57 98 Room Air 08/30/24 06:00 89 14 136/64 99 Room Air 08/30/24 05:45 85 15 146/74 98 Room Air 08/30/24 05:30 98.4 90 21 134/68 97 Room Air 08/30/24 03:42 98.1 87 18 142/68 98 Room Air* 0 21 LABS: Laboratory: Test 08/30/24 10:28 08/30/24 09:57 08/30/24 02:06 08/29/24 20:42 Range/Units Whole Blood Glucose 229 H 70-110 MG/DL Sodium Level 135 L 136-145 mmol/L Potassium Level 4.0 3.5-5.1 mmol/L Chloride Level 106 101-111 mmol/L Carbon Dioxide Level 16 L 21-32 mmol/L Blood Urea Nitrogen 13 7-18 mg/dL Creatinine 1.1 H 0.5-1.0 mg/dL Glomerular Filtration Rate Calc 59 >90 mL/min Random Glucose 217 H 70-105 mg/dL Total Calcium 8.2 L 8.5-10.1 mg/dL Blood Gas Specimen Type Arterial Arterial Blood pH 7.279 L 7.350-7.450 Arterial Blood Partial Pressure CO2 18 *L 32-45 mmHg Arterial Blood Partial Pressure O2 81.6 L 83.0-108.0 mmHg Arterial Blood HCO3 8.3 L 21.0-28.0 mmol/L Arterial Blood Oxygen Saturation 95.0 94.0-98.0 % Arterial Blood Base Excess -15.8 L -2.0-3.0 mmol/L Blood Gas Temperature 37.0 35.5-37.0 CELSIUS Blood Gas Vent Mode RA ROOM AIR FiO2 21.0 % Blood Gas Specimen Comment RR RN UMANG Lactic Acid Level 2.0 0.8-2.5 mmol/L Test 08/29/24 17:25 08/29/24 16:00 08/29/24 14:09 08/29/24 13:41 Range/Units Whole Blood Ketones Quantitative 6.3 H 0.0-0.6 mmol/L Urine Color LIGHT-YELLOW YELLOW Urine Appearance CLEAR CLEAR Urine pH 5.5 5.0-8.0 Urine Specific [place] 1.029 1.001-1.031 Urine Protein 30 H NEGATIVE mg/dL Urine Glucose (UA) >=1000 H NEGATIVE mg/dL Urine Ketones 150 H NEGATIVE mg/dL Urine Occult Blood +- (TRACE) H NEGATIVE Urine Nitrate NEGATIVE NEGATIVE Urine Bilirubin NEGATIVE NEGATIVE mg/dL Urine Urobilinogen 0.2 0.2-1.0 mg/dL Urine Leukocyte Esterase 75 H NEGATIVE [place]/uL Urine RBC 0-1 0-1 /HPF Urine WBC 26-50 H 0-1 /HPF Urine Squamous Epithelial Cells RARE 0-2 /HPF Urine Bacteria RARE None Seen /HPF Urine Other Casts 3 None Seen /LPF Urine Yeast RARE None Seen /HPF Total Creatine Kinase 27 21-232 U/L Troponin I High Sensitivity 16.0 4-50 ng/L White Blood Count 9.1 4.8-10.8 K/uL Red Blood Count 5.55 H 4.00-5.50 MIL/uL Hemoglobin 17.4 H 12.0-16.0 g/dL Hematocrit 48.2 H 36-48 % Mean Corpuscular Volume 86.8 79-99 fL Mean Corpuscular Hemoglobin 31.4 27.0-33.0 pg Mean Corpuscular Hemoglobin Concent 36.1 H 32.0-36.0 g/dL Red Cell Distribution Width 12.0 11.0-15.5 % Platelet Count 225 130-400 K/uL Mean Platelet Volume 9.8 7.5-10.5 fL Immature Granulocyte % (Auto) 0.4 0-1 % Neutrophils (%) (Auto) 75.6 40.0-77.0 % Lymphocytes (%) (Auto) 17.6 L 21.0-51.0 % Monocytes (%) (Auto) 6.0 3.0-13.0 % Eosinophils (%) (Auto) 0.0 0.0-8.0 % Basophils (%) (Auto) 0.4 0.0-5.0 % Neutrophils # (Auto) 6.9 1.8-7.7 K/uL Lymphocytes # (Auto) 1.6 1.0-4.8 K/uL Monocytes # (Auto) 0.6 0.1-1.0 K/uL Eosinophils # (Auto) 0.00 0.00-0.70 K/uL Basophils # (Auto) 0.04 0.00-0.20 K/uL Absolute Immature Granulocyte (auto 0.04 0-1 K/uL Nucleated Red Blood Cells 0.0 0.0-0.19 % Red Blood Cell Morphology See comments B-Type Natriuretic Peptide 7 0-100 pg/mL Current Medications Medications (Trade) Dose Ordered Sig/Alejandro Route PRN Reason Start Time Stop Time Status Last Admin Dose Admin Acetaminophen (TYLenol 650MG SUPPOSITORY) 650 mg Q6H PRN RC MILD PAIN (1-3) 08/29/24 19:00 09/28/24 18:59 Aztreonam (Azactam) 1 gm Q8H IVPB 08/29/24 19:00 08/29/24 22:54 DC 08/29/24 19:39 1 GM Ceftriaxone Sodium (Rocephin 2gm Inj) 2 gm Q24H IVPB 08/29/24 23:00 09/08/24 22:59 08/29/24 22:58 2 GM Dextrose/Sodium Chloride 1,000 ml @ 0 mls/hr AD IV 08/29/24 16:30 09/28/24 16:29 Diphenhydramine HCl (BENAdryl INJ) 25 mg Q6H PRN IM ITCHING 08/29/24 23:00 09/28/24 22:59 Heparin Sodium (Porcine) (HEParin 5,000 UNIT VIAL) 5,000 unit BID SQ 08/29/24 21:00 09/28/24 20:59 08/30/24 10:07 5,000 UNIT Hydralazine HCl (APRESOLine 20MG INJ) 10 mg Q6H PRN IV For:SBP above 160;DBP above 90 08/29/24 19:00 09/28/24 18:59 Insulin Glargine (LANtus 100 UNITS/ML 10 ML VIAL) 20 units BID@0730,2100 SQ 08/30/24 08:30 09/29/24 08:29 08/30/24 10:09 20 UNITS Insulin Human Regular (humuLIN R 100 UNIT/ML 3ML) INSULIN SLIDING SCAL... Q6H6 SQ 08/30/24 00:00 09/29/24 00:00 Insulin Human Regular 100 unit/ Sodium Chloride 101 ml @ 0 mls/hr PROTOCOL IV 08/29/24 16:30 09/28/24 16:29 08/29/24 16:52 9.7 MLS/HR Magnesium Sulfate 50 ml @ 0 mls/hr PROTOCOL IV 08/29/24 16:30 09/28/24 16:29 Morphine Sulfate (morPHINE 4MG SYG) 4 mg Q4H PRN IV SEVERE PAIN (7-10) 08/29/24 19:00 09/05/24 18:59 12/15/24 07:53 4 MG Ondansetron HCl (zoFRAN 4MG INJ) 4 mg Q6H PRN IV NAUSEA/VOMITING 08/29/24 19:00 09/28/24 18:59 Pantoprazole Sodium (PROTonix 40MG INJ) 40 mg DAILY IVP 08/30/24 09:00 09/29/24 08:59 08/30/24 10:06 40 MG Potassium Chloride 20 meq/ Sodium Chloride 1,010 ml @ 0 mls/hr PROTOCOL IV 08/29/24 16:30 09/28/24 16:29 08/29/24 16:51 150 MLS/HR Potassium Chloride/Dextrose/ Sod Cl 1,000 ml @ 0 mls/hr AD IV 08/29/24 16:30 09/28/24 16:29 08/29/24 19:45 150 MLS/HR Potassium Chloride/Sodium Chloride 1,000 ml @ 150 mls/hr Q6H40M PRN IV PROTOCOL 08/30/24 01:40 09/29/24 01:39 08/30/24 04:31 150 MLS/HR Potassium Chloride 100 ml @ 50 mls/hr AD PRN IV POTASSIUM PROTOCOL 08/29/24 22:30 09/28/24 22:29 08/30/24 01:56 50 MLS/HR Sodium Chloride 1,000 ml @ 200 mls/hr PROTOCOL IV 08/29/24 16:30 09/28/24 16:29 DIAGNOSTICS / RADIOLOGY: [ ] ASSESSMENT: DKA DM2 last A1C unknown Medical non-compliance SAMMY, improving Hypertension Medical noncompliance PLAN: - Continue ICU care - Continue DKA protocol - Continue ceftriaxone - Follow up with cultures - monitor BP, will start BP medication if consistently hypertensive Disposition: Pending resolution of DKA Greater than 35 minutes ICU time spent in care of this patient DANUTA BASHIR MD Aug 30, 2024 10:40
[2024-08-30 13:19] LABS: POTASSIUM 3.9 mmol/L (3.5-5.1)
[2024-08-30 16:35] LABS: POTASSIUM 3.8 mmol/L (3.5-5.1)
[2024-08-30] MEDS ORDERED: LACTATED RINGERS 1000ML IV SCH (17:00)
[2024-08-30 20:41] LABS: CREATININE 0.9 mg/dL (0.5-1.0); POTASSIUM 3.8 mmol/L (3.5-5.1)
[2024-08-30] MEDS: 0.9%NACL 1000ML 1,000 ML IV SCH (23:33)
[2024-08-31] VITALS (51 sets, daily range): BP systolic 140–171; BP diastolic 70–99; PULSE 77–98; RESP 12–23; TEMP 98.1–98.9; O2SAT 98–99
[2024-08-31 00:51] LABS: CREATININE 0.9 mg/dL (0.5-1.0); POTASSIUM 3.5 mmol/L (3.5-5.1)
[2024-08-31 04:24] LABS: BASOPHILS # (AUTO) 0.03 K/uL (0.00-0.20); BASOPHILS % (AUTO) 0.6 % (0.0-5.0); EOSINOPHILS # (AUTO) 0.07 K/uL (0.00-0.70); EOSINOPHILS % (AUTO) 1.4 % (0.0-8.0); HEMATOCRIT 33.6 % (36-48); IMMATURE GRANULOCYTE ABSOLUTE 0.02 K/uL (0-1); LYMPHOCYTES # (AUTO) 1.5 K/uL (1.0-4.8); LYMPHOCYTES % (AUTO) 29.5 % (21.0-51.0); MEAN CORPUSCULAR HEMOGLOBIN 31.2 pg (27.0-33.0); MEAN CORPUSCULAR VOLUME 86.6 fL (79-99); MONOCYTES # (AUTO) 0.3 K/uL (0.1-1.0); MONOCYTES % (AUTO) 6.7 % (3.0-13.0); NEUTROPHILS % (AUTO) 61.4 % (40.0-77.0); PLATELET COUNT (AUTO) 183 K/uL (130-400); RED BLOOD CELL COUNT(AUTO) 3.88 MIL/uL (4.00-5.50)
[2024-08-31 05:23] LABS: CREATININE 0.8 mg/dL (0.5-1.0); POTASSIUM 3.3 mmol/L (3.5-5.1)
--- NOTE | 2024-08-31 07:58 | NUR ---
UPON ASSESSING PT , PT NOTED WITH A SMILE AND VOICED ACTED UPON HER FEELINGS WHEN SHE LAST TOOK 20 PILLS OF THE 500MG TYLENOL. PT VOICES TO BE ON AND OFF WITH BOYFRIEND AND WAS AT A [employer] WHERE HER BOYFRIEND COUSINS STARTED TELLING HER THINGS. SHE CURRENTLY VOICES TO FEEL REGRETFUL ABOUT ATTEMPTING TO HURT HERSELF WITH THE 20 PILLS OF TYLENOL, SHE DENIES ANY PLANS TO HURT HERSELF AGAIN, SHE DENIES ANY WISHES TO HURT HERSELF AGAIN, AND SHE DENIES TO HURT ANYONE . PT APPEARS CALM .PT CURRENTLY HAS 1:1 SITTER IN ROOM, ALL SUICIDE PRECAUTIONS ARE IN PLACE. Addendum: 08/31/24 at 0803 by BHUMIKA TALBOT RN RN WRONG PT
--- NOTE | 2024-08-31 09:52 | PN ---
[facility] PROGRESS NOTE Date of Service: Aug 31, 2024 Time of Service: 09:48 SUBJECTIVE: 08/30 patient seen at bedside, no acute events overnight. She still has an anion gap, we will continue with DKA protocol. She reports her nausea and vomiting have resolved. Her vitals and labs are relatively unremarkable. Patient reports she stopped taking her insulin once she started Ozempic and she was not checking her blood sugars. There is a question if her increased nausea and vomiting was secondary to Ozempic or if it was a result of her DKA. This is unable to be determined as she was not checking her blood sugars while she was at home. 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 08/31 the patient has been seen and examined earlier this morning during my rounding, she remains admitted to the ICU, she is alert oriented x3 during my visit, BP 160/74, afebrile, saturating normal on room air. Patient is currently on insulin drip, getting IV fluids, denied chest pain, no shortness a breath, no nausea, no vomiting. CMP shows a sodium of 138, carbon dioxide of 17. REVIEW OF SYSTEMS 12 point review of systems negative unless noted in HPI PHYSICAL EXAM GENERAL APPEARANCE: The patient is awake, alert, and oriented, in no acute cardiopulmonary distress. NEUROLOGICAL: Cranial nerves II-XII grossly intact. Motor is 5/5 in bilateral upper and lower extremities proximal to distal. No sensory deficits. HEENT: Face is symmetric. Pupils are equal and reactive. Extraocular movements are intact. NECK: Supple. No JVD. No thyromegaly. No submental, submandibular, pre- /postauricular, occipital or supraclavicular lymphadenopathy. CHEST: Normal chest expansion. No Telemetry. LUNGS: Absence of any rales, rhonchi or any wheezing. CARDIOVASCULAR: Regular. S1 and S2 normal. No appreciable rubs, murmurs or gallops. ABDOMEN: Soft, nontender, and nondistended. There is no rebound, voluntary guarding, or rigidity. : Deferred. No Huertas. EXTREMITIES: Non-edematous and not cyanotic. No clubbing. Good capillary refill. SKIN: No skin breakdown. Vital Signs (last 8hr) Date Time Temp Pulse Resp B/P (MAP) Pulse Ox O2 Delivery O2 Flow Rate FiO2 08/31/24 09:00 84 16 99 08/31/24 08:47 98.2 81 15 160/74 99 Room Air 08/31/24 08:30 89 15 99 08/31/24 08:00 84 16 98 08/31/24 07:47 87 14 157/74 99 Room Air 08/31/24 07:43 99 Room Air* 0 21 08/31/24 07:30 89 16 99 08/31/24 07:00 89 14 98 08/31/24 06:00 93 23 140/75 95 Room Air 08/31/24 05:47 82 13 140/75 98 Room Air 08/31/24 05:00 87 16 153/81 98 Room Air 08/31/24 04:00 98.8 93 18 158/76 99 Room Air 08/31/24 04:00 99 Room Air* 0 08/31/24 03:00 83 16 146/70 98 Room Air 08/31/24 02:00 89 16 152/72 99 Room Air LABS: Laboratory: Test 08/31/24 08:38 08/31/24 03:49 08/30/24 02:06 08/29/24 20:42 Range/Units Whole Blood Glucose 194 H 70-110 MG/DL White Blood Count 5.0 4.8-10.8 K/uL Red Blood Count 3.88 L 4.00-5.50 MIL/uL Hemoglobin 12.1 # 12.0-16.0 g/dL Hematocrit 33.6 #L 36-48 % Mean Corpuscular Volume 86.6 79-99 fL Mean Corpuscular Hemoglobin 31.2 27.0-33.0 pg Mean Corpuscular Hemoglobin Concent 36.0 32.0-36.0 g/dL Red Cell Distribution Width 12.0 11.0-15.5 % Platelet Count 183 130-400 K/uL Mean Platelet Volume 9.9 7.5-10.5 fL Immature Granulocyte % (Auto) 0.4 0-1 % Neutrophils (%) (Auto) 61.4 40.0-77.0 % Lymphocytes (%) (Auto) 29.5 21.0-51.0 % Monocytes (%) (Auto) 6.7 3.0-13.0 % Eosinophils (%) (Auto) 1.4 0.0-8.0 % Basophils (%) (Auto) 0.6 0.0-5.0 % Neutrophils # (Auto) 3.0 1.8-7.7 K/uL Lymphocytes # (Auto) 1.5 1.0-4.8 K/uL Monocytes # (Auto) 0.3 0.1-1.0 K/uL Eosinophils # (Auto) 0.07 0.00-0.70 K/uL Basophils # (Auto) 0.03 0.00-0.20 K/uL Absolute Immature Granulocyte (auto 0.02 0-1 K/uL Nucleated Red Blood Cells 0.0 0.0-0.19 % Sodium Level 138 136-145 mmol/L Potassium Level 3.3 L 3.5-5.1 mmol/L Chloride Level 108 101-111 mmol/L Carbon Dioxide Level 17 L 21-32 mmol/L Blood Urea Nitrogen 4 L 7-18 mg/dL Creatinine 0.8 0.5-1.0 mg/dL Glomerular Filtration Rate Calc 86 >90 mL/min Random Glucose 209 H 70-105 mg/dL Total Calcium 8.0 L 8.5-10.1 mg/dL Blood Gas Specimen Type Arterial Arterial Blood pH 7.279 L 7.350-7.450 Arterial Blood Partial Pressure CO2 18 *L 32-45 mmHg Arterial Blood Partial Pressure O2 81.6 L 83.0-108.0 mmHg Arterial Blood HCO3 8.3 L 21.0-28.0 mmol/L Arterial Blood Oxygen Saturation 95.0 94.0-98.0 % Arterial Blood Base Excess -15.8 L -2.0-3.0 mmol/L Blood Gas Temperature 37.0 35.5-37.0 CELSIUS Blood Gas Vent Mode RA ROOM AIR FiO2 21.0 % Blood Gas Specimen Comment RR RN UMANG Lactic Acid Level 2.0 0.8-2.5 mmol/L Test 08/29/24 17:25 08/29/24 16:00 08/29/24 14:09 08/29/24 13:41 Range/Units Whole Blood Ketones Quantitative 6.3 H 0.0-0.6 mmol/L Urine Color LIGHT-YELLOW YELLOW Urine Appearance CLEAR CLEAR Urine pH 5.5 5.0-8.0 Urine Specific Mcleod 1.029 1.001-1.031 Urine Protein 30 H NEGATIVE mg/dL Urine Glucose (UA) >=1000 H NEGATIVE mg/dL Urine Ketones 150 H NEGATIVE mg/dL Urine Occult Blood +- (TRACE) H NEGATIVE Urine Nitrate NEGATIVE NEGATIVE Urine Bilirubin NEGATIVE NEGATIVE mg/dL Urine Urobilinogen 0.2 0.2-1.0 mg/dL Urine Leukocyte Esterase 75 H NEGATIVE Letty/uL Urine RBC 0-1 0-1 /HPF Urine WBC 26-50 H 0-1 /HPF Urine Squamous Epithelial Cells RARE 0-2 /HPF Urine Bacteria RARE None Seen /HPF Urine Other Casts 3 None Seen /LPF Urine Yeast RARE None Seen /HPF Total Creatine Kinase 27 21-232 U/L Troponin I High Sensitivity 16.0 4-50 ng/L Red Blood Cell Morphology See comments B-Type Natriuretic Peptide 7 0-100 pg/mL Current Medications Medications (Trade) Dose Ordered Sig/Alejandro Route PRN Reason Start Time Stop Time Status Last Admin Dose Admin Acetaminophen (TYLenol 650MG SUPPOSITORY) 650 mg Q6H PRN RC MILD PAIN (1-3) 08/29/24 19:00 09/28/24 18:59 Aztreonam (Azactam) 1 gm Q8H IVPB 08/29/24 19:00 08/29/24 22:54 DC 08/29/24 19:39 1 GM Ceftriaxone Sodium (Rocephin 2gm Inj) 2 gm Q24H IVPB 08/29/24 23:00 09/08/24 22:59 08/30/24 22:21 2 GM Dextrose/Sodium Chloride 1,000 ml @ 0 mls/hr AD IV 08/29/24 16:30 09/28/24 16:29 Diphenhydramine HCl (BENAdryl INJ) 25 mg Q6H PRN IM ITCHING 08/29/24 23:00 09/28/24 22:59 Heparin Sodium (Porcine) (HEParin 5,000 UNIT VIAL) 5,000 unit BID SQ 08/29/24 21:00 09/28/24 20:59 08/31/24 08:37 5,000 UNIT Hydralazine HCl (APRESOLine 20MG INJ) 10 mg Q6H PRN IV For:SBP above 160;DBP above 90 08/29/24 19:00 09/28/24 18:59 Insulin Glargine (LANtus 100 UNITS/ML 10 ML VIAL) 20 units BID@0730,2100 SQ 08/30/24 08:30 09/29/24 08:29 08/30/24 10:09 20 UNITS Insulin Human Regular (humuLIN R 100 UNIT/ML 3ML) INSULIN SLIDING SCAL... Q6H6 SQ 08/30/24 00:00 09/29/24 00:00 Insulin Human Regular 100 unit/ Sodium Chloride 101 ml @ 0 mls/hr PROTOCOL IV 08/29/24 16:30 09/28/24 16:29 08/29/24 16:52 9.7 MLS/HR Lactated Ringer's (Lactated Ringers 1000ml) 2,000 ml BOLUS IV 08/30/24 17:00 08/30/24 16:57 DC Magnesium Sulfate 50 ml @ 0 mls/hr PROTOCOL IV 08/29/24 16:30 09/28/24 16:29 Morphine Sulfate (morPHINE 4MG SYG) 4 mg Q4H PRN IV SEVERE PAIN (7-10) 08/29/24 19:00 09/05/24 18:59 08/30/24 14:42 4 MG Ondansetron HCl (zoFRAN 4MG INJ) 4 mg Q6H PRN IV NAUSEA/VOMITING 08/29/24 19:00 09/28/24 18:59 Pantoprazole Sodium (PROTonix 40MG INJ) 40 mg DAILY IVP 08/30/24 09:00 09/29/24 08:59 08/31/24 08:36 40 MG Potassium Chloride 20 meq/ Sodium Chloride 1,010 ml @ 0 mls/hr PROTOCOL IV 08/29/24 16:30 09/28/24 16:29 08/29/24 16:51 150 MLS/HR Potassium Chloride/Dextrose/ Sod Cl 1,000 ml @ 0 mls/hr AD IV 08/29/24 16:30 09/28/24 16:29 08/29/24 19:45 150 MLS/HR Potassium Chloride/Sodium Chloride 1,000 ml @ 150 mls/hr Q6H40M PRN IV PROTOCOL 08/30/24 01:40 09/29/24 01:39 08/31/24 01:45 150 MLS/HR Potassium Chloride 100 ml @ 50 mls/hr AD PRN IV POTASSIUM PROTOCOL 08/29/24 22:30 09/28/24 22:29 08/31/24 08:37 50 MLS/HR Sodium Chloride 1,000 ml @ 200 mls/hr PROTOCOL IV 08/29/24 16:30 09/28/24 16:29 08/30/24 23:33 200 MLS/HR DIAGNOSTICS / RADIOLOGY: [ ] POA ASSESSMENT: DKA DM2 last A1C unknown Medical non-compliance SAMMY, improving Hypertension Medical noncompliance PLAN: - Continue ICU care - Continue DKA protocol - Continue ceftriaxone - preliminary culture report less than [id number] CFU. - continue to monitor BP and adjust medication as needed Disposition: Patient remains admitted to the intensive care unit, continue supportive care with IV fluids, continue with the DKA protocol, continue to replace electrolytes IV per protocol. Continue to follow critical care input and recommendations. Plan of action discussed, all questions answered, agreed and understood the information provided. Total ICU time spent greater than 30 minutes. Greater than 35 minutes ICU time spent in care of this patient NELL DAS MD Aug 31, 2024 09:52
--- NOTE | 2024-08-31 10:42 | NUR ---
Nutritional Note: Chart, meds, and labs Reviewed. Pt reported pt stopped taking insulin x 1 week when pt started taking Ozempic. Pt currently NPO. Pt reported poor appetite >1 week and intentional wt loss, mostly due to DMII medication. Recommend: -Check HA1C to obtain the three-month average of blood sugar. -Check folate, iron, vit b12, and Vit D levels to rule out deficiencies. Per research low vitamin D may contribute to insulin resistance + vit. D deficiency may impair wound healing. -Check Lipid Panel - Electrolyte replacements per protocol -Monitor PO advancement, PO intake%, wt, and labs -If No BM >3days consider bowel stimulant. -Educate prior to d/c and/or when pt stabilized and downgraded to medical floor. -Pt f/u w/ PCP and referral to outpatient RD. - Please notify RD if additional nutrition concerns arise. SEE RD Nutritional Assessment for additional assessment information. Addendum: 08/31/24 at [address] Amended: Links added.
--- NOTE | 2024-08-31 13:50 | NUR ---
pt aaox3. no distress noted, voiced to have bed alarm removed, pt educated and informed about the importance of having bed alarm , pt voiced understanding and signed consent for refusal of bedalarm. consent placed inside chart.
[2024-08-31 14:19] LABS: CREATININE 0.9 mg/dL (0.5-1.0); MAGNESIUM 1.4 mg/dL (1.80-2.40); POTASSIUM 3.4 mmol/L (3.5-5.1)
--- NOTE | 2024-08-31 14:34 | NUR ---
changed to algorithm#2 per i.v. insulin infusion protocol.
--- NOTE | 2024-08-31 14:43 | HMCIMG ---
US RENAL SONOGRAM HISTORY: Pyelonephritis COMPARISON: None TECHNIQUE: Renal and bladder ultrasound study was performed. FINDINGS: The right kidney measures 12 x 4.4 x 5.2 cm. The left kidney measures 11 x 5.9 x 4.2 cm. No evidence of hydronephrosis is seen of either kidney. Both kidneys are seen. There is right renal pelvis fullness. Bladder is moderately distended. Bladder wall measures 4 mm. IMPRESSION: 1. No hydronephrosis is seen. Right renal pelvis fullness.
[2024-08-31] MEDS: MAGNESIUM 2GM PREMIX 50ML 50 ML IV SCH (15:00)
--- NOTE | 2024-08-31 16:30 | PN ---
[facility] PROGRESS NOTE Date Patient Seen: Aug 31, 2024 Time of Visit: 16:29 Supervising Physician: Reginald Rivera Primary Care Physician: Hospitalist Outpatient Specialists: [facility]ATT Inpatient Consults: Dr. Fonseca PROBLEM LIST: Diabetic ketoacidosis Acute complicated cystitis Hypertension Acute renal failure secondary to ATN from dehydration Morbid obesity BMI of 38 Adverse reaction to Ozempic History of diabetes mellitus INTERVAL HISTORY: 08/30 patient is awake alert oriented x3 no acute distress. She remains on insulin drip for DKA protocol lab this morning with sodium 132 potassium 3.5 bicarb is still low at 14 BUN is 15 creatinine is 1.1. Glucose 255. We will give bolus of IV fluids. Continue BMP q4h. transition when bicarb is over 18 and gap <14 x2. 08/31 patient is awake alert oriented x3 remains on DKA protocol continue until bicarb is more than 18 x 2 as well as gap less than 14. NPO in the meantime. Continue current regimen. Obtain ultrasound of the abdomen to see if pyelonephritis. REVIEW OF SYSTEMS: 12 point ROS reviewed with patient. Pertinent positives mentioned above. Otherwise negative. PHYSICAL EXAM: GENERAL: alert, weak, awake oriented x 3 HEENT: EOMI, Sclera non icteric, moist mucosa NECK: Supple, no JVD, trachea midline LUNGS: Clear breath sounds bilaterally. No wheezes HEART: Regular rate and rhythm. Normal S1 and S2, without murmurs ABD: Abdomen soft, nontender. Bowel sounds present EXT: No clubbing cyanosis or edema NEURO: Alert and oriented to person, follows commands Vital Signs (last 8hr) Date Time Temp Pulse Resp B/P (MAP) Pulse Ox O2 Delivery O2 Flow Rate FiO2 08/31/24 16:09 99 Room Air* 0 21 08/31/24 12:53 98.8 08/31/24 12:30 95 18 100 08/31/24 12:00 92 23 99 08/31/24 12:00 99 Room Air* 0 21 08/31/24 11:47 90 15 143/79 99 08/31/24 11:30 77 16 96 08/31/24 11:00 97 19 97 08/31/24 10:47 84 17 140/76 99 Room Air 08/31/24 10:30 88 17 98 08/31/24 10:00 88 19 99 08/31/24 09:47 94 13 154/85 99 Room Air 08/31/24 09:30 81 17 97 08/31/24 09:00 84 16 99 08/31/24 08:47 98.2 81 15 160/74 99 Room Air 08/31/24 08:30 89 15 99 LABS: Hematology Labs: Test 08/31/24 03:49 Range/Units White Blood Count 5.0 4.8-10.8 K/uL Red Blood Count 3.88 L 4.00-5.50 MIL/uL Hemoglobin 12.1 # 12.0-16.0 g/dL Hematocrit 33.6 #L 36-48 % Mean Corpuscular Volume 86.6 79-99 fL Mean Corpuscular Hemoglobin 31.2 27.0-33.0 pg Mean Corpuscular Hemoglobin Concent 36.0 32.0-36.0 g/dL Red Cell Distribution Width 12.0 11.0-15.5 % Platelet Count 183 130-400 K/uL Mean Platelet Volume 9.9 7.5-10.5 fL Immature Granulocyte % (Auto) 0.4 0-1 % Neutrophils (%) (Auto) 61.4 40.0-77.0 % Lymphocytes (%) (Auto) 29.5 21.0-51.0 % Monocytes (%) (Auto) 6.7 3.0-13.0 % Eosinophils (%) (Auto) 1.4 0.0-8.0 % Basophils (%) (Auto) 0.6 0.0-5.0 % Neutrophils # (Auto) 3.0 1.8-7.7 K/uL Lymphocytes # (Auto) 1.5 1.0-4.8 K/uL Monocytes # (Auto) 0.3 0.1-1.0 K/uL Eosinophils # (Auto) 0.07 0.00-0.70 K/uL Basophils # (Auto) 0.03 0.00-0.20 K/uL Absolute Immature Granulocyte (auto 0.02 0-1 K/uL Nucleated Red Blood Cells 0.0 0.0-0.19 % Chemistry Labs: Test 08/31/24 15:37 08/31/24 13:52 08/29/24 20:42 08/29/24 17:25 Range/Units Whole Blood Glucose 280 H 70-110 MG/DL Sodium Level 138 136-145 mmol/L Potassium Level 3.4 L 3.5-5.1 mmol/L Chloride Level 107 101-111 mmol/L Carbon Dioxide Level 17 L 21-32 mmol/L Blood Urea Nitrogen 3 L 7-18 mg/dL Creatinine 0.9 0.5-1.0 mg/dL Glomerular Filtration Rate Calc 75 >90 mL/min Random Glucose 254 H 70-105 mg/dL Total Calcium 8.3 L 8.5-10.1 mg/dL Magnesium Level 1.40 L 1.80-2.40 mg/dL Lactic Acid Level 2.0 0.8-2.5 mmol/L Whole Blood Ketones Quantitative 6.3 H 0.0-0.6 mmol/L DIAGNOSTICS / RADIOLOGY RESULTS: [ ] PLAN NEURO: Minimize central acting medications as possible. Fall Precautions. Well lighted room through the day and minimize interruptions through the night to prevent acute delirium. PULMONARY: Supplemental 02 as needed Titrate Fio2 to keep Spo2 > or = 90% DuoNebs and CPT as needed IS hourly while awake for pulmonary hygiene Out of bed to chair as tolerated CARDIOVASCULAR: Follow hemodynamics. Titrate vasopressor to keep MAP >65 or systolic blood pressure >95mmHg DIPS: Insulin drip LINES: PIV GI & NUTRITION: Keep patient NPO Continue nutritional support Aspirations precautions Prokinetic agents and laxatives as needed KIDNEYS & ELECTROLYTES: Strict monitoring of intake and output Daily weights Continue current IV fluid Avoid nephrotoxic agents Monitor electrolytes and replace as needed Goal urine output of 30mL/hr or 0.5mL/kg/hr ENDOCRINE: Maintain blood glucose between 100-180 at all times. Insulin sliding scale for blood glucose management Continue insulin drip until the gap is closed Transition to insulin subcutaneously INFECTIOUS DISEASE: Trend temperature. Moore-culture if febrile. Ceftriaxone 2 g IV daily Micro: Urine culture Antibiotics: [Ceftriaxone 2 g IV daily ] HEMATOLOGY & COAGULATION: Monitor H&H. Keep Hgb > 7 Transfuse 1 unit of PRBC for Hgb < 7 Transfuse 1 pack of platelets of platelets < 20, 000 Watch for any signs and symptoms of bleeding SKIN: Pressure ulcer prevention per facility protocol Rehab: PT/OT Prophylaxis: GI: [SCDs ] DVT: [Heparin ] Code Status: Full Resuscitation Disposition: [Keep in ICU ] Other: Total patient care time exceeds 35 minutes excluding all procedures. Case was discussed and seen with my supervising physician Dr Raymundo Montelongo. The above plan was formulated and agreed upon. FORTINO ROSEN [facility] Aug 31, 2024 16:30
[2024-08-31] MEDS: LACTATED RINGERS 1000ML IV SCH (17:44)
[2024-08-31 19:00] LABS: CREATININE 0.8 mg/dL (0.5-1.0); MAGNESIUM 1.9 mg/dL (1.80-2.40); POTASSIUM 3.2 mmol/L (3.5-5.1)
[2024-08-31] MEDS: INSULIN GLARgine 100 UNITS/ML 10 ML VIAL SQ SCH (21:09)
[2024-08-31] MEDS: hydrALAZine 20MG/ML VIAL IV PRN (23:04)
[2024-08-31 23:58] LABS: CREATININE 0.8 mg/dL (0.5-1.0); POTASSIUM 3.6 mmol/L (3.5-5.1)
[2024-09-01] VITALS (13 sets, daily range): BP systolic 115–172; BP diastolic 61–96; PULSE 69–102; RESP 10–21; TEMP 98–99; O2SAT 96–99
[2024-09-01] MEDS ORDERED: PoTASSium chloRIDE 20MEQ/10ML 20 MEQ in 0.9%NACL 1000ML 1,000 ML IV SCH (00:30)
[2024-09-01] MEDS: NS-20 MEQ KCL 1000ML 1,000 ML IV ONE (00:48)
[2024-09-01] MEDS: INSULIN humuLIN R 100 UNIT/ML 3ML SQ SCH (00:51)
[2024-09-01 04:36] LABS: BASOPHILS # (AUTO) 0.03 K/uL (0.00-0.20); BASOPHILS % (AUTO) 0.6 % (0.0-5.0); EOSINOPHILS # (AUTO) 0.07 K/uL (0.00-0.70); EOSINOPHILS % (AUTO) 1.5 % (0.0-8.0); HEMATOCRIT 33.6 % (36-48); IMMATURE GRANULOCYTE ABSOLUTE 0.02 K/uL (0-1); LYMPHOCYTES # (AUTO) 1.5 K/uL (1.0-4.8); LYMPHOCYTES % (AUTO) 31.8 % (21.0-51.0); MEAN CORPUSCULAR HGB CONC 36.3 g/dL (32.0-36.0); MEAN CORPUSCULAR VOLUME 85.5 fL (79-99); MONOCYTES # (AUTO) 0.4 K/uL (0.1-1.0); MONOCYTES % (AUTO) 8.2 % (3.0-13.0); NEUTROPHILS # (AUTO) 2.8 K/uL (1.8-7.7); NEUTROPHILS % (AUTO) 57.5 % (40.0-77.0); PLATELET COUNT (AUTO) 186 K/uL (130-400); RED BLOOD CELL COUNT(AUTO) 3.93 MIL/uL (4.00-5.50); RED CELL DISTRIBUTION WIDTH 11.9 % (11.0-15.5); WHITE BLOOD COUNT (AUTO) 4.8 K/uL (4.8-10.8)
[2024-09-01 04:54] LABS: CREATININE 0.7 mg/dL (0.5-1.0); POTASSIUM 3.1 mmol/L (3.5-5.1)
[2024-09-01] MEDS: PoTASSium chl 10% ELIXIR 20MEQ 20 MEQ/15 ML UDCUP PO PRN (06:40)
--- NOTE | 2024-09-01 08:00 | NUR ---
PT REFUSED BED ALARM, SHE IS A,A,OX3, AND RECEIVED EDUCATION ON FALL RISK/PREVENTION. PT VERBALIZED UNDERSTANDING.
[2024-09-01] MEDS: PoTASSium chloRIDE 20MEQ ER 20 MEQ ERTAB PO PRN (08:44)
--- NOTE | 2024-09-01 13:00 | NUR ---
CONSULT CALLED INTO
--- NOTE | 2024-09-01 15:02 | PN ---
[facility] PROGRESS NOTE Date of Service: Sep 01, 2024 Time of Service: 15:00 SUBJECTIVE: 08/30 patient seen at bedside, no acute events overnight. She still has an anion gap, we will continue with DKA protocol. She reports her nausea and vomiting have resolved. Her vitals and labs are relatively unremarkable. Patient reports she stopped taking her insulin once she started Ozempic and she was not checking her blood sugars. There is a question if her increased nausea and vomiting was secondary to Ozempic or if it was a result of her DKA. This is unable to be determined as she was not checking her blood sugars while she was at home. 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 08/31 the patient has been seen and examined earlier this morning during my rounding, she remains admitted to the ICU, she is alert oriented x3 during my visit, BP 160/74, afebrile, saturating normal on room air. Patient is currently on insulin drip, getting IV fluids, denied chest pain, no shortness a breath, no nausea, no vomiting. CMP shows a sodium of 138, carbon dioxide of 17. 09/01 the patient has been seen and examined today, off insulin drip, getting IV fluids, tolerating diet, alert oriented x3, hemodynamically stable, BP 120/68, afebrile, saturating normal on room air, no nausea, no vomiting, no abdominal pain. REVIEW OF SYSTEMS 12 point review of systems negative unless noted in HPI PHYSICAL EXAM GENERAL APPEARANCE: The patient is awake, alert, and oriented, in no acute cardiopulmonary distress. NEUROLOGICAL: Cranial nerves II-XII grossly intact. Motor is 5/5 in bilateral upper and lower extremities proximal to distal. No sensory deficits. HEENT: Face is symmetric. Pupils are equal and reactive. Extraocular movements are intact. NECK: Supple. No JVD. No thyromegaly. No submental, submandibular, pre- /postauricular, occipital or supraclavicular lymphadenopathy. CHEST: Normal chest expansion. No Telemetry. LUNGS: Absence of any rales, rhonchi or any wheezing. CARDIOVASCULAR: Regular. S1 and S2 normal. No appreciable rubs, murmurs or gallops. ABDOMEN: Soft, nontender, and nondistended. There is no rebound, voluntary guarding, or rigidity. : Deferred. No Huertas. EXTREMITIES: Non-edematous and not cyanotic. No clubbing. Good capillary refill. SKIN: No skin breakdown. Vital Signs (last 8hr) Date Time Temp Pulse Resp B/P (MAP) Pulse Ox O2 Delivery O2 Flow Rate FiO2 09/01/24 11:30 98.8 85 18 120/68 99 Room Air 09/01/24 07:25 99 Room Air* 0 21 LABS: Laboratory: Test 09/01/24 13:56 09/01/24 11:41 09/01/24 03:55 08/31/24 18:39 Range/Units Potassium Level 3.8 3.5-5.1 mmol/L Whole Blood Glucose 235 H 70-110 MG/DL White Blood Count 4.8 4.8-10.8 K/uL Red Blood Count 3.93 L 4.00-5.50 MIL/uL Hemoglobin 12.2 12.0-16.0 g/dL Hematocrit 33.6 L 36-48 % Mean Corpuscular Volume 85.5 79-99 fL Mean Corpuscular Hemoglobin 31.0 27.0-33.0 pg Mean Corpuscular Hemoglobin Concent 36.3 H 32.0-36.0 g/dL Red Cell Distribution Width 11.9 11.0-15.5 % Platelet Count 186 130-400 K/uL Mean Platelet Volume 10.1 7.5-10.5 fL Immature Granulocyte % (Auto) 0.4 0-1 % Neutrophils (%) (Auto) 57.5 40.0-77.0 % Lymphocytes (%) (Auto) 31.8 21.0-51.0 % Monocytes (%) (Auto) 8.2 3.0-13.0 % Eosinophils (%) (Auto) 1.5 0.0-8.0 % Basophils (%) (Auto) 0.6 0.0-5.0 % Neutrophils # (Auto) 2.8 1.8-7.7 K/uL Lymphocytes # (Auto) 1.5 1.0-4.8 K/uL Monocytes # (Auto) 0.4 0.1-1.0 K/uL Eosinophils # (Auto) 0.07 0.00-0.70 K/uL Basophils # (Auto) 0.03 0.00-0.20 K/uL Absolute Immature Granulocyte (auto 0.02 0-1 K/uL Nucleated Red Blood Cells 0.0 0.0-0.19 % Sodium Level 137 136-145 mmol/L Chloride Level 105 101-111 mmol/L Carbon Dioxide Level 20 L 21-32 mmol/L Blood Urea Nitrogen 1 L 7-18 mg/dL Creatinine 0.7 0.5-1.0 mg/dL Glomerular Filtration Rate Calc 101 >90 mL/min Random Glucose 185 H 70-105 mg/dL Total Calcium 8.7 8.5-10.1 mg/dL Magnesium Level 1.90 1.80-2.40 mg/dL Current Medications Medications (Trade) Dose Ordered Sig/Alejandro Route PRN Reason Start Time Stop Time Status Last Admin Dose Admin Acetaminophen (TYLenol 650MG SUPPOSITORY) 650 mg Q6H PRN RC MILD PAIN (1-3) 08/29/24 19:00 09/28/24 18:59 Aztreonam (Azactam) 1 gm Q8H IVPB 08/29/24 19:00 08/29/24 22:54 DC 08/29/24 19:39 1 GM Ceftriaxone Sodium (Rocephin 2gm Inj) 2 gm Q24H IVPB 08/29/24 23:00 09/08/24 22:59 08/31/24 23:18 2 GM Dextrose/Sodium Chloride 1,000 ml @ 0 mls/hr AD IV 08/29/24 16:30 09/01/24 00:30 DC Diphenhydramine HCl (BENAdryl INJ) 25 mg Q6H PRN IM ITCHING 08/29/24 23:00 09/28/24 22:59 Heparin Sodium (Porcine) (HEParin 5,000 UNIT VIAL) 5,000 unit BID SQ 08/29/24 21:00 09/28/24 20:59 09/01/24 08:44 5,000 UNIT Hydralazine HCl (APRESOLine 20MG INJ) 10 mg Q6H PRN IV For:SBP above 160;DBP above 90 08/29/24 19:00 09/28/24 18:59 08/31/24 23:04 10 MG Insulin Glargine (LANtus 100 UNITS/ML 10 ML VIAL) 20 units BID@0730,2100 SQ 08/30/24 08:30 08/31/24 16:31 DC 08/30/24 10:09 20 UNITS Insulin Glargine (LANtus 100 UNITS/ML 10 ML VIAL) 30 units BID@0730,2100 SQ 08/31/24 21:00 09/30/24 20:59 09/01/24 06:45 30 UNITS Insulin Human Regular (humuLIN R 100 UNIT/ML 3ML) INSULIN SLIDING SCAL... ACHS SQ 09/01/24 00:30 10/01/24 00:29 09/01/24 12:27 10 UNIT Insulin Human Regular (humuLIN R 100 UNIT/ML 3ML) INSULIN SLIDING SCAL... Q6H6 SQ 08/30/24 00:00 09/01/24 00:30 DC Insulin Human Regular 100 unit/ Sodium Chloride 101 ml @ 0 mls/hr PROTOCOL IV 08/29/24 16:30 09/01/24 00:30 DC 08/29/24 16:52 9.7 MLS/HR Lactated Ringer's (Lactated Ringers 1000ml) 1,000 ml ONCE IV 08/31/24 16:30 09/30/24 16:29 08/31/24 17:44 1,000 ML Lactated Ringer's (Lactated Ringers 1000ml) 2,000 ml BOLUS IV 08/30/24 17:00 08/30/24 16:57 DC Magnesium Sulfate 50 ml @ 0 mls/hr PROTOCOL IV 08/29/24 16:30 09/01/24 06:17 DC 09/01/24 01:00 25 MLS/HR Morphine Sulfate (morPHINE 4MG SYG) 4 mg Q4H PRN IV SEVERE PAIN (7-10) 08/29/24 19:00 09/05/24 18:59 08/30/24 14:42 4 MG Ondansetron HCl (zoFRAN 4MG INJ) 4 mg Q6H PRN IV NAUSEA/VOMITING 08/29/24 19:00 09/28/24 18:59 Pantoprazole Sodium (PROTonix 40MG INJ) 40 mg DAILY IVP 08/30/24 09:00 09/29/24 08:59 09/01/24 08:43 40 MG Potassium Chloride 20 meq/ Sodium Chloride 1,010 ml @ 0 mls/hr PROTOCOL IV 08/29/24 16:30 09/01/24 00:30 DC 08/29/24 16:51 150 MLS/HR Potassium Chloride 20 meq/ Sodium Chloride 1,010 ml @ 100 mls/hr AD IV 09/01/24 00:30 09/28/24 16:29 Potassium Chloride/Dextrose/ Sod Cl 1,000 ml @ 0 mls/hr AD IV 08/29/24 16:30 09/01/24 00:30 DC 08/31/24 22:44 175 MLS/HR Potassium Chloride/Sodium Chloride 1,000 ml @ 150 mls/hr Q6H40M PRN IV PROTOCOL 08/30/24 01:40 09/01/24 00:30 DC 08/31/24 01:45 150 MLS/HR Potassium Chloride 100 ml @ 50 mls/hr AD PRN IV POTASSIUM PROTOCOL 08/29/24 22:30 09/28/24 22:29 09/01/24 05:04 50 MLS/HR Potassium Chloride (K-Dur/Klor-Con 20meq) 20 meq AD PRN PO POTASSIUM PROTOCOL 09/01/24 05:30 10/01/24 05:29 09/01/24 08:44 20 MEQ Potassium Chloride (KCl 10% Elixir 20meq/15ml) 20 meq AD PRN PO POTASSIUM PROTOCOL 09/01/24 05:30 10/01/24 05:29 09/01/24 06:41 20 MEQ Sodium Chloride 1,000 ml @ 200 mls/hr PROTOCOL IV 08/29/24 16:30 08/31/24 17:59 DC 08/31/24 10:05 200 MLS/HR DIAGNOSTICS / RADIOLOGY: [ ] POA ASSESSMENT: DKA DM2 last A1C unknown Medical non-compliance SAMMY, improving Hypertension Medical noncompliance PLAN: - patient to be downgraded to the PCU/medical floor - continue glargine 30 units subQ b.i.d. -continue insulin sliding scale -endocrinology consultation requested, follow input and recommendation - Continue ceftriaxone empirically, trend WBC in a.m. - preliminary culture report less than [id number] CFU. -replace electrolytes IV per protocol -a.m. labs -GI and DVT prophylaxis Plan of action discussed, all questions answered, agreed and understood the information provided. Total ICU time spent greater than 30 minutes. NELL DAS MD Sep 01, 2024 15:02
--- NOTE | 2024-09-01 21:31 | NUR ---
attempted to give report to mac not ready will call back
--- NOTE | 2024-09-01 21:35 | NUR ---
report given transfer to [phone]
[2024-09-02] VITALS: BP 145/74; PULSE 81; RESP 17; TEMP 98
[2024-09-02 04:00] VITALS: BP 111/62; PULSE 74; RESP 17; TEMP 97.7
[2024-09-02 05:32] LABS: HEMATOCRIT 32.5 % (36-48); MEAN CORPUSCULAR HEMOGLOBIN 31.3 pg (27.0-33.0); MEAN CORPUSCULAR VOLUME 86.9 fL (79-99); RED BLOOD CELL COUNT(AUTO) 3.74 MIL/uL (4.00-5.50); RED CELL DISTRIBUTION WIDTH 12.3 % (11.0-15.5); WHITE BLOOD COUNT (AUTO) 4.9 K/uL (4.8-10.8)
[2024-09-02 05:42] LABS: ALBUMIN 2.4 g/dL (3.5-5.0); BILIRUBIN,TOTAL 0.4 mg/dL (0.2-1.0); CREATININE 0.7 mg/dL (0.5-1.0); MAGNESIUM 1.8 mg/dL (1.80-2.40); POTASSIUM 3.3 mmol/L (3.5-5.1); TOTAL PROTEIN, SERUM 5.8 g/dL (6.0-8.3)
[2024-09-02 08:00] VITALS: BP 155/88; PULSE 93; RESP 20; TEMP 98.4
[2024-09-02 08:48] VITALS: O2SAT 98
[2024-09-02] MEDS: LISINOPRIL 2.5 MG TABLET PO SCH (08:48)
[2024-09-02] MEDS: PoTASSium chloRIDE 20MEQ ER 20 MEQ ERTAB PO ONE (08:48)
[2024-09-02 12:00] VITALS: BP 131/78; PULSE 93; RESP 20; TEMP 98.2
[2024-09-02] MEDS ORDERED: INSU100I26 SQ (12:20)
[2024-09-02] MEDS ORDERED: LISI5TAB21 PO (12:20)
--- NOTE | 2024-09-02 12:27 | DS ---
Discharge Summary Hospital Course Summary: This is a very pleasant 54-year-old female with past medical history of diabetes mellitus, for which she uses insulin aspart (Fiasp) 28 units before each meal at home as well as Basaglar kwikpen (insulin glargine) 78 units daily in the morning at home, presented to the emergency room at [facility] August 29, 2024 with a chief complaint of generalized weakness. In the emergency room the patient was found to have glucose greater than 400, with metabolic acidosis on ABG. The patient was admitted to the critical care unit with a diagnosis of acute DKA, she was started on insulin protocol and critical care consultation as well as assistant associate full professor requested. Further discussion with the patient she stated that she changed her insurance to [employer] [facility], and her Basaglar insulin was not covered by this insurance, so she was recommended a different one, and after that her blood sugar got out of control. During the course of the hospitalization the patient responded satisfactorily to medical management, she has been downgraded from the ICU to the medical floor, she is alert oriented x3, hemodynamically stable, blood sugar 180. According to her, at home when she was using her regimen prior to change to insurance company she was stable with her blood glucose level in the range of 130-140. Per my discussion with the patient today, she already switch back to her prior insurance that covers both the Fiasp as well as the Basaglar kwikpen. She currently needs on with a prescription for the Basaglar. She already has the Fiasp at home. Plan is for the patient to be discharged home today. 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 Assessment/Plan: FINAL DIAGNOSIS DKA DM2 last A1C unknown Medical non-compliance SAMMY, improving Hypertension Discharge Instructions: THE PATIENT TO FOLLOW WITH THE PRIMARY CARE PHYSICIAN AND COMPUTER OPERATIONS ANALYST AN OUTPATIENT AND TO RETURN TO THE HOSPITAL IF HER CONDITION CHANGES. PATIENT AGREED WITH PLAN AND UNDERSTOOD THE INFORMATION PROVIDED. Home Medications: Reported Medications Semaglutide (Ozempic) 2 Mg/0.75 Ml (8 Mg/3 Ml) Pen.injctr, 2 MG SQ QWEEK for 30 Days, #3 ML 0 Refills 08/29/24 Time spent arranging discharge: 31-60 minutes NELL DAS MD Sep 02, 2024 12:27
--- NOTE | 2024-09-02 15:52 | NUR ---
DISCHARGE PIVS DC'D DISCHARGE INSTRUCTIONS GIVEN TO THE PATIENT PRESCRIPTION HANDED TO THE PATIENT PATIENT STATES SHE ALREADY HAS A FOLLOW UP WITH HER PCP AND ARBORIST CLIMBER ALL QUESTIONS ANSWERED PRIOR TO DISCHARGE
== END 2024-09-02 17:15 | disposition home or self-care (01) | DRG 637 ==
LOC: EDH 13:12 → EDHIP 18:07 → 2BH 08-30 05:51 → 3DH 09-01 21:34
PROVIDERS: ADMIT Internal Medicine; ATTEND Internal Medicine
DX: E11.10 Type 2 diabetes mellitus with ketoacidosis without coma (principal); N17.0 Acute kidney failure with tubular necrosis; N30.00 Acute cystitis without hematuria; E11.22 Type 2 diabetes mellitus with diabetic chronic kidney disease; I12.9 Hypertensive chronic kidney disease with stage 1 through stage 4 chronic kidney disease, or unspecified chronic kidney disease; N18.9 Chronic kidney disease, unspecified; R63.0 Anorexia; E66.01 Morbid (severe) obesity due to excess calories; E86.0 Dehydration; Z68.38 Body mass index [BMI] 38.0-38.9, adult; Z88.0 Allergy status to penicillin; Z91.199 Patient's noncompliance with other medical treatment and regimen due to unspecified reason; Z79.4 Long term (current) use of insulin; Z90.721 Acquired absence of ovaries, unilateral
CPT/HCPCS: 36415; 36600; 76770; 80048; 80053; 80061; 81001; 82010; 82550; 82803; 82948; 83036; 83605; 83735; 83880; 84132; 84484; 85025; 85027; 87086; 93005; 96361; 96372; 96375; 99291; G0378; J0360; J0696; J1644; J1815; J1885; J2270; J2405; J2470; J3475; J3480; J3490; J7030; A4600